=== PATIENT | female | born 1960 ===

== ENCOUNTER 2016-09-28 07:20 | Day surgery (SDC) | payer MEDICARE, OTHER ==
[2016-09-28 07:50] VITALS: BMI 30.2
--- NOTE | 2016-09-28 09:27 | CP.SDSHP ---
Same Day Surgery H & P - History Proposed Procedure: EGD Pre-Op Diagnosis: SEE NOTES - Previous Medical/Surgical History Neuro: Other Misc: Other - Allergies Allergies: Allergies No Known Allergies Allergy (Verified 09/28/16 07:49) - Physical Exam General Appearance: N Vital Signs: Vital Signs 09/28/16 09/28/16 07:54 08:11 Temperature 97.3 F L Pulse Rate 71 71 Respiratory 19 Rate Blood Pressure 143/75 O2 Sat by Pulse 98 Oximetry Mental Status: Alert & Oriented x3 Neuro: WNL Heart: WNL Lungs: WNL GI: Other - {Optional Preform as Required} Breast: WNL Abdomen: Other Rectal: Other Integument: WNL : WNL Ortho: WNL ENT: WNL - Impression Pt. Evaluated Today:Candidate for Anesthesia & Procedure: Yes - Date & Time Time: 09:27 Short Stay Discharge - Short Stay Discharge Admitting Diagnosis/Reason for Visit: DYSPEPSIA Disposition: HOME/ ROUTINE
[2016-09-28] MEDS ORDERED: Pantoprazole 40 mg EC Tab PO ONE (09:28)
[2016-09-28] MEDS ORDERED: Belladonna-Phenobarbital PO ONE (09:29)
[2016-09-28 09:54] VITALS: TEMP 98
[2016-09-28 10:12] VITALS: RESP 15; O2SAT 97
[2016-09-28 10:31] VITALS: BP 126/71; PULSE 60
== END 2016-09-28 10:40 | disposition home or self-care (01) ==
LOC: C.ENDO 07:20
PROVIDERS: ATTEND Specialist
DX: K29.50 Unspecified chronic gastritis without bleeding (principal); K44.9 Diaphragmatic hernia without obstruction or gangrene; K20.9 Esophagitis, unspecified